=== PATIENT | male | born 1955 | race African-American/Black ===

== ENCOUNTER 2017-05-15 18:17 | Inpatient (IN) ==
[2017-05-15] MEDS ORDERED: SODIUM CHLORIDE 0.9% 1,000 ML IV STA ×2 (18:38→18:55)
--- NOTE | 2017-05-15 18:45 | Emergency Department Note ---
Arrival - Arrival Chief Complaint: Syncope ED Nursing Triage Note: pt has been sitting outside most of the day at a family eating and passed out while sitting in his wheelchair. acu check was 167 Mode of Arrival: Stretcher Time Seen by Provider: 05/15/17 18:31 - History of Present Illness HPI Narrative: This is a 62-year-old male of descent with a history of acute stroke for which he was admitted to [facility] where an MRI scan showed acute infarct in the high right vertex and left cerebellum. The findings suggestive of a possible thrombotic embolic event or watershed infarct. He was admitted to [facility] for further medical management and rehabitation but his hospital course was complicated by sudden onset of dehydration and low blood pressure and decreasing level of consciousness for which he was transferred to [facility] where he stayed for couple of days and transferred back to [facility] after stabilization and then was transferred to [facility] facility ([facility]) for further long-term therapy and care. His family member picked him up from the [facility] at approximately 4 PM and he was with her sitting in the lawn in his wheelchair for approximately 1-1/2 hours when he suddenly became unresponsive. He was unable to wake him and called 911 where she was instructed to pull him onto the ground and began CPR. She did chest compressions for approximately 10 minutes and was breathing into his mouth but she noticed that he was breathing during the entire time that she was doing the CPR. Within 20 minutes of his passing out the ambulance arrived and found that his blood sugar was normal. In the emergency department the patient was noted to be awake alert oriented to the president the [facility] in the month. The family member said that this was his normal baseline from a mental status point of view. Allergies/Adverse Reactions: Allergies Allergy/AdvReac Type Severity Reaction Status Date / Time morphine Allergy Unknown/Unable Verified 01/12/15 23:03 to obtain Home Medications: Home Medications Medication Instructions Recorded Confirmed Type Pravastatin [Pravachol] 20 mg PO BEDTIME #30 tablet 03/29/15 04/23/16 Rx Lisinopril/Hydrochlorothiazide 1 each PO DAILY 04/18/15 04/23/16 History [Lisinopril-Hctz 20-12.5 mg Tab] Aspirin EC Tab 325 mg PO DAILY 04/23/16 04/23/16 History Multivitamin [One Daily] 1 each PO DAILY 04/23/16 04/23/16 History Nicotine [Nicotine 21 mg/24 Hr 1 patch TRANSDERM DAILY 04/23/16 04/23/16 History Patch] Nitroglycerin [Nitroglycerin SL 0.4 mg SL Q5M PRN 04/23/16 04/23/16 History Tab] amLODIPine [Norvasc] 10 mg PO DAILY 04/24/16 04/24/16 History Enoxaparin [Lovenox] 40 mg SUBCUT Q24H syringe 05/06/16 Rx Folic Acid Tab 1 mg PO DAILY tablet 05/06/16 Rx Losartan [Cozaar] 25 mg PO DAILY tablet 05/06/16 Rx Thiamine Tab [Vitamin B1 Tab] 100 mg PO DAILY tablet 05/06/16 Rx Amoxicillin Cap/Tab 500 mg PO Q8HR #30 capsule 04/16/17 Rx Review of System - Review of System Constitutional: Absent: fever, night sweats, weakness Eyes: Absent: redness, vision change Head/Ears/Nose/Throat: Absent: epistaxis, nasal drainage Respiratory: Absent: respiratory distress, wheezing Cardiovascular: Present: orthopnea, syncope. Absent: chest pain, palpitations Gastrointestinal: Absent: diarrhea, constipation, hematemesis Genitourinary male: Absent: hematuria, discharge Musculoskeletal: Absent: joint swelling, lower back pain Skin: Absent: change in color, change in hair/nails Neurological: Absent: numbness, paresthesias, confusion Psychiatric: Absent: anxiety, depression Endocrine: Absent: heat intolerance, polydipsia, polyuria Hematological/Lymphatic: Absent: easy bruising, lymphadenopathy Allergic/Immunologic: Absent: urticaria, itchy eyes Medical,Surgical,& Family Hx - Medical History Cardio: History of: Hypertension, Cardiovascular Problems (states has heart problems, unsure of specifics, denies heart attack) No history of: Aneurysm, Cardiac Dysrhythmia, Cerebrovascular Disease, Congenital Heart Disease, CHF, CAD, [place], Pacemaker, PVD, Valvular Heart Disease Psychological: History of: Depression No history of: Anxiety Disorders, ADHD, Behavior Problems, Bipolar Disorder, Previous Suicide Attempt, Psychiatric/Substance Abuse Tx, Schizophrenia, Violent Behavior, Psychiatric Problems Neurology: History of: TIA (this admit patient unsure, very poor historian) No history of: Brain Aneurysm, Cerebral Hemorrhage, Cerebrovascular Accident , Cerebral Palsy, Dementia, Migraine, Multiple Sclerosis, Parkinson's Disease, Peripheral Neuropathy, Seizures, Vertigo, Neurologocal Cancer HEENT: History of: Dental Problems No history of: Ear Problem, Eye Problem, Glaucoma, Oral Cancer, HEENT Problems Endocrine: History of: Diabetes Mellitus (NIDDM), Dyslipidemia No history of: Adrenal Disease, Diabetes Mellitus (IDDM), Thyroid Disorder, Endocrine Cancer, Endocrine Problems Rheumatology: No history of;: Sjogrens, Systemic Lupus Erythematosus Respiratory: No history of: Asthma, Bronchitis, COPD, Intubation, Obstructive Sleep Apnea , Pulmonary Embolism, Pulmonary Hypertension, Pneumonia, Lung Cancer, Respiratory Problems Renal: No history of: Renal (Kidney) Cancer, Dialysis, Renal Failure, Renal Problems Genitourinary: History of: Problems (frequency) No history of: Bladder Problem, Kidney Stones, Prostate Problems, Recurring Urinary Tract Infections, Genitourinary Cancer Gastrointestinal: History of: GERD, Liver Problems No history of: Bowel Obstruction, Clostridium Difficile, Crohn's Disease, Diverticulitis/ Diverticulosis, Esophageal Varices, Gastrointestinal Bleed, Hemorrhoids, Hematochezia, Hepatitis, Pancreatitis, Polyps, Ulcerative Colitis, Gastrointestinal Cancer, GI Problems Musculoskeletal: No history of: Amputation Hematology: No history of: Blood Transfusion Reaction Other: History of: Skin Problems No history of: Anesthesia Reactions, Anaphylaxis, Cancer, HIV, Malignant Hyperthermia, MRSA, Vancomycin-Resistant Enterococci, Miscellaneous Medical Problems - Surgical History Cardiac Surgeries: Sugical HX of: Cardiac Catheterization Patient Denies: Femoral-Popliteal Bypass Graft, Cardiac Surgery, Carotid Endarterectomy, Internal Defibrillator, Vascular Access Devices Thoracic Surgeries: Patient denies;: Kidney (Renal Surgery), Lithotripsy, Nephrectomy, Organ Transplant, Lobectomy Neurologic Surgeries: Patient denies: Brain Aneurysm, Cerebral Hemorrhage, Neurologic Surgery HEENT Surgeries: Patient denies: Carotid Endarterectomy, Eye Surgery, Thyroid Surgery, Tonsilectomy & Adenoidectomy Abdominal Surgeries: Patient denies: Abdominal Surgery, Appendectomy, Cholecystectomy, Colonoscopy , Gastric Bypass Surgery, EGD, Hernia Repair, Splenectomy Reproductive Surgeries: Patient denies;: Cystoscopy, Genitourinary Surgery, Prostate Surgery - Family History Family History: Reports;: Family Diabetes, Family Heart Disease, Family Hypertension, Family Stroke Denies;: Family Anesthesia Reaction, Family Cancer, Family Psychiatric Problems - Social History Smoking Status: Current every day smoker Frequency of Alcohol Use: None Type of Drug Use: None Exam Vital Signs: Vital Signs Temperature 97.3 F L 05/15/17 18:22 Pulse Rate 87 05/15/17 18:22 Respiratory Rate 18 05/15/17 18:29 Blood Pressure 89/66 05/15/17 18:22 O2 Sat by Pulse Oximetry 95 05/15/17 18:22 - General Exam limited due to: ALOC - Head Head exam: Present: atraumatic, normocephalic - Eye Eye exam: Present: normal appearance, PERRL, EOMI - ENT ENT exam: Present: normal exam, normal oropharynx - Neck Neck exam: Present: normal inspection, full ROM - Chest Chest inspection: Present: normal inspection - Respiratory Respiratory exam: Present: normal lung sounds bilaterally - Cardiovascular Cardiovascular exam: Present: regular rate, normal rhythm - Abdominal Exam Abdominal exam: Present: soft, distention - Extremities Exam Extremities exam: Present: normal inspection, full ROM - Back Exam Back exam: Present: normal inspection, full ROM - Neurological Exam Neurological exam: Present: alert, oriented X3, CN II-XII intact, other ( 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 The remainder of the neurologic examination is normal.) - Skin Skin exam: Present: warm, dry Course Course Narrative: The patient had an unresponsive episode and CPR was done but there is no respiratory rest. In the emergency department the patient had a low blood pressure. This is the third episode the patient has had in the past 2 months of a similar presentation. However since the patient actually had CPR during this episode it seems prudent that the patient should be admitted to the hospital for observation and possible further evaluation. The case was discussed with the hospitalist who agreed to admit the patient. Results - Labs CBC & BMP: 05/15/17 18:35 05/15/17 18:35 Disposition Clinical Impression: Hypotension, Syncope, Cardiac arrest Disposition: Still a Patient Additional Instructions: The patient had an unresponsive episode and CPR was done but there is no respiratory rest. In the emergency department the patient had a low blood pressure. This is the third episode the patient has had in the past 2 months of a similar presentation. However since the patient actually had CPR during this episode it seems prudent that the patient should be admitted to the hospital for observation and possible further evaluation. The case was discussed with the hospitalist who agreed to admit the patient.
--- NOTE | 2017-05-15 18:47 | EKG Report ---
Stationary ECG Study [facility] ER Test Date: 05/15/2017 6:23:31 PM Pat Name: JEFFERSON SIMON Department: Room: Gender: M Surgery Assistant: : [id number] Requested by: Twin Fernandez Order Number: [id number] Reading MD: NENA RASHID Intervals [place] Rate: 83 P: 112 NM: 147 QRS: 28 QRSD: 79 T: 1 QT: 359 QTc: 399 Interpretive Statements SINUS RHYTHM Electronically Signed On 05-15-17 20:00:02 CDT by NENA RASHID [email or web address]
[2017-05-15 18:48] LABS: Basophils % 0.3 % (0.0-0.8); Eosinophils # 0.2 10*3/uL (0.0-0.87); Eosinophils % 3.1 % (0.00-10.9); Hemoglobin 14.7 GM/DL (14.0-18.0); Immature Granulocytes % 0.3 %; Immature Granulocytes Absolute 0.02 #; Lymphocytes # 3.9 10*3/uL (1.4-4.0); Mean Corpuscular Hemoglobin 32 PG (27-34); Mean Corpuscular Volume 91.1 FL (87-102); Monocytes # 0.6 10*3/uL (0.11-0.8); Monocytes % 8.9 % (1.7-12.7); Neutrophils % 29.4 % (38.7-73.9); Platelet Count 231 T/CUMM (130-400); Red Blood Count 4.61 MC/CUMM (3.8-5.5); Red Cell Distribution Width 12.8 % (9.3-17.3); White Blood Count 6.7 T/CUMM (4-12)
[2017-05-15 19:17] LABS: Eosinophils 3 % (0-10); Lymphocytes 62 % (20-55); Segmented Neutrophils 25 % (50-85); Total Cells Counted 100
[2017-05-15 19:18] LABS: Platelet Estimate Adequate
[2017-05-15 19:20] LABS: Alanine Aminotransferase 54 U/L (16-61); Albumin 3.5 G/DL (3.4-5.0); Alkaline Phosphatase 205 U/L (45-117); Aspartate Amino Transferase 47 U/L (0-37); Blood Urea Nitrogen 15 MG/DL (7-18); Glucose 153 MG/DL (74-106); Osmolality,Calculated 280.5 MOS/KG (273-304); Potassium 3.4 MMOL/L (3.5-5.1); Sodium 139 MMOL/L (136-145); Troponin I Only < 0.015 NG/ML (0.00-0.045)
--- NOTE | 2017-05-15 19:24 | XRay Report ---
History: CPR arrest Date: 05/15/2017 Study: Chest x-ray single view portable Comparison exam: March 28, 2015 The cardiomediastinal silhouette is unchanged. The pulmonary vasculature is not engorged. The lungs are generally clear for shallow breath. There is no gross pleural effusion. There is moderate thoracic spondylosis and mild osteopenia. Impression: No acute cardiopulmonary process compared to the previous study PROCEDURE INTERPRETED AT [facility] DEPARTMENT OF RADIOLOGY Final Report Signed by: Dr. Mariaa Judd
--- NOTE | 2017-05-15 20:32 | Hospitalist History & Physical ---
Assessment and Plan (1) DVT prophylaxis Status: Acute Current Visit: No (2) HTN (hypertension) Status: Acute Current Visit: No (3) History of cocaine abuse Status: Acute Current Visit: No (4) Syncope and collapse Status: Acute Current Visit: No (5) TIA (transient ischemic attack) Status: Acute Assessment and plan: Plan for this patient 1. Admit patient to monitored bed 2. Check a CT scan of his head 3. Continue with IV fluids 4. Follow-up on labs 5. Home blood pressure medications 6. Neurology consult 7. These episodes happen before unsure of the cause. He runs episodes of hypotension which that previously occurred while he was in rehab. This also occurred when he was at the [facility] before. This is the third time this happened. Need to be evaluated to see if his blood pressure is running too low. Will hold his current blood pressure medications. Evaluate his carotids. And defer to Dr. Lemus to see if he would on additional imaging. Current Visit: No History of Present Illness Chief complaint: Syncope History of present illness: Mr. Vasquez is a 62 year old male with past medical history significant for stroke who was hospitalized at [facility] and transferred to a nursing care facility almost 1 year ago who presents to our ER tonight. Patient resides at the [facility] now [employer]. He is at the [facility] because of his inability to care for himself and he cannot walk secondary to stroke. Patient was taken home for a visit by sister. He was sitting there in a wheelchair and then he slumped over. She said his eyes rolled back in his head. She said she started [id number] resuscitation on him. She said he was breathing on his own at this time. He would not respond. At some point he slid down to the ground on his wheelchair. She started chest compressions. She did not check for a pulse at that time. When EMS arrived there patient threw up. He was brought to our hospital for further evaluation. Patient was found to be hypotensive in the emergency room received 2 L bolus and now is back in his normal state. I was consulted to admit him to the emergency room. Home Medications Medication Instructions Recorded Confirmed Type Pravastatin [Pravachol] 20 mg PO BEDTIME #30 tablet 03/29/15 04/23/16 Rx Lisinopril/Hydrochlorothiazide 1 each PO DAILY 04/18/15 04/23/16 History [Lisinopril-Hctz 20-12.5 mg Tab] Aspirin EC Tab 325 mg PO DAILY 04/23/16 04/23/16 History Multivitamin [One Daily] 1 each PO DAILY 04/23/16 04/23/16 History Nicotine [Nicotine 21 mg/24 Hr 1 patch TRANSDERM DAILY 04/23/16 04/23/16 History Patch] Nitroglycerin [Nitroglycerin SL 0.4 mg SL Q5M PRN 04/23/16 04/23/16 History Tab] amLODIPine [Norvasc] 10 mg PO DAILY 04/24/16 04/24/16 History Enoxaparin [Lovenox] 40 mg SUBCUT Q24H syringe 05/06/16 Rx Folic Acid Tab 1 mg PO DAILY tablet 05/06/16 Rx Losartan [Cozaar] 25 mg PO DAILY tablet 05/06/16 Rx Thiamine Tab [Vitamin B1 Tab] 100 mg PO DAILY tablet 05/06/16 Rx Amoxicillin Cap/Tab 500 mg PO Q8HR #30 capsule 04/16/17 Rx Allergies Allergy/AdvReac Type Severity Reaction Status Date / Time morphine Allergy Unknown/Unable Verified 01/12/15 23:03 to obtain Medical,Surgical,& Family Hx - Medical History Cardio: History of: Hypertension, Cardiovascular Problems (states has heart problems, unsure of specifics, denies heart attack) No history of: Aneurysm, Cardiac Dysrhythmia, Cerebrovascular Disease, Congenital Heart Disease, CHF, CAD, [place], Pacemaker, PVD, Valvular Heart Disease Psychological: History of: Depression No history of: Anxiety Disorders, ADHD, Behavior Problems, Bipolar Disorder, Previous Suicide Attempt, Psychiatric/Substance Abuse Tx, Schizophrenia, Violent Behavior, Psychiatric Problems Neurology: History of: TIA (this admit patient unsure, very poor historian) No history of: Brain Aneurysm, Cerebral Hemorrhage, Cerebrovascular Accident , Cerebral Palsy, Dementia, Migraine, Multiple Sclerosis, Parkinson's Disease, Peripheral Neuropathy, Seizures, Vertigo, Neurologocal Cancer HEENT: History of: Dental Problems No history of: Ear Problem, Eye Problem, Glaucoma, Oral Cancer, HEENT Problems Endocrine: History of: Diabetes Mellitus (NIDDM), Dyslipidemia No history of: Adrenal Disease, Diabetes Mellitus (IDDM), Thyroid Disorder, Endocrine Cancer, Endocrine Problems Rheumatology: No history of;: Sjogrens, Systemic Lupus Erythematosus Respiratory: No history of: Asthma, Bronchitis, COPD, Intubation, Obstructive Sleep Apnea , Pulmonary Embolism, Pulmonary Hypertension, Pneumonia, Lung Cancer, Respiratory Problems Renal: No history of: Renal (Kidney) Cancer, Dialysis, Renal Failure, Renal Problems Genitourinary: History of: Problems (frequency) No history of: Bladder Problem, Kidney Stones, Prostate Problems, Recurring Urinary Tract Infections, Genitourinary Cancer Gastrointestinal: History of: GERD, Liver Problems No history of: Bowel Obstruction, Clostridium Difficile, Crohn's Disease, Diverticulitis/ Diverticulosis, Esophageal Varices, Gastrointestinal Bleed, Hemorrhoids, Hematochezia, Hepatitis, Pancreatitis, Polyps, Ulcerative Colitis, Gastrointestinal Cancer, GI Problems Musculoskeletal: No history of: Amputation Hematology: No history of: Blood Transfusion Reaction Other: History of: Skin Problems No history of: Anesthesia Reactions, Anaphylaxis, Cancer, HIV, Malignant Hyperthermia, MRSA, Vancomycin-Resistant Enterococci, Miscellaneous Medical Problems - Surgical History Cardiac Surgeries: Sugical HX of: Cardiac Catheterization Patient Denies: Femoral-Popliteal Bypass Graft, Cardiac Surgery, Carotid Endarterectomy, Internal Defibrillator, Vascular Access Devices Thoracic Surgeries: Patient denies;: Kidney (Renal Surgery), Lithotripsy, Nephrectomy, Organ Transplant, Lobectomy Neurologic Surgeries: Patient denies: Brain Aneurysm, Cerebral Hemorrhage, Neurologic Surgery HEENT Surgeries: Patient denies: Carotid Endarterectomy, Eye Surgery, Thyroid Surgery, Tonsilectomy & Adenoidectomy Abdominal Surgeries: Patient denies: Abdominal Surgery, Appendectomy, Cholecystectomy, Colonoscopy , Gastric Bypass Surgery, EGD, Hernia Repair, Splenectomy Reproductive Surgeries: Patient denies;: Cystoscopy, Genitourinary Surgery, Prostate Surgery - Family History Family History: Reports;: Family Diabetes, Family Heart Disease, Family Hypertension, Family Stroke Denies;: Family Anesthesia Reaction, Family Cancer, Family Psychiatric Problems - Social History Smoking Status: Current every day smoker Frequency of Alcohol Use: None Type of Drug Use: None 12 point system: reviewed and no additional remarkable complaints except as stated Exam - Constitutional Vitals: Period Temp Pulse Resp BP Sys/Neri Pulse Ox Last 24 Hr 97.3 F-97.3 F 87-87 18-18 89-89/66-66 95 General appearance: normal weight, no acute distress - Head Head exam: Present: normal inspection - Eye Eye exam: Present: EOMI Pupils: Present: KELLY - ENT ENT exam: Present: normal exam - Neck Neck exam: Present: normal inspection - Respiratory Respiratory exam: Present: clear to auscultation bilaterally - Cardiovascular Cardiovascular exam: Present: regular rate and rhythm - GI/Abdominal GI/Abdominal exam: Present: normal bowel sounds - Extremities Exam Extremities exam: Present: normal inspection - Neurological Exam Neurological exam: Present: alert, other (Patient has a residual flaccid paralysis on his left side. He has more movement in his left upper extremity. But it is decreased.) - Psychiatric Psychiatric exam: Present: normal affect - Skin Skin exam: Present: normal color Results - Labs CBC & BMP: 05/15/17 18:35 05/15/17 18:35
--- NOTE | 2017-05-15 20:49 | CT Report ---
History: Syncope Date: 05/15/2017 Study: CT head without contrast Comparison exam: April 16, [address] sections were obtained through the brain without contrast. The ventricles are midline in position without evidence of hydrocephalus. There is no mass or area of parenchymal hemorrhage. There is no gross CT evidence of acute cortical stroke. There is mild cerebral atrophy. There is a wedge-shaped area of chronic ischemia in the paramedian aspect of the right frontal lobe as before. Areas of chronic lacunar infarction are noted in the anterior right internal capsule, left caudate head, right thalamus, as before. There is a small amount of ill-defined low density in the periventricular white matter without mass effect compatible with changes of small vessel disease. There is no extra-axial hematoma. There is some mild mucosal thickening in the right sphenoid sinus, similar to the previous study. There is no obvious skull fracture. Impression: No acute intracranial process. Chronic ischemic changes as on the previous study. Right sphenoid sinusitis which may be chronic This CT exam was performed using one or more the following dose reduction techniques: Automated exposure control, adjustment of the MA and/or KV according to patient size, or use of iterative reconstruction technique. PROCEDURE INTERPRETED AT [facility] DEPARTMENT OF RADIOLOGY Final Report Signed by: Dr. Mariaa Judd
[2017-05-15 21:08] LABS: Apearance,Urine CLEAR (Clear); Bilirubin,Urine Negative (Negative); Blood, Urine Negative (Negative); Glucose,Urine (UA) Negative (Negative); Hyaline Casts,Urine 15 /LPF (0-3); Ketones,Urine Negative (Negative); Mucus,Urine Occasional /LPF (Occasional); Nitrite,Urine Negative (Negative); Protein,Urine Negative; RBC,Urine 11 /HPF (0-4); Squamous Epithelial Cell,Urine Occasional /HPF (0-10); Urine Color Yellow (Yellow); Urine Specific Gravity 1.013 (1.001-1.035); WBC,Urine <1 /HPF (0-6)
[2017-05-15 21:20] LABS: Risk Ratio 3.58; VLDL CHOLESTEROL 29.6 MG/DL
[2017-05-15] MEDS: ENOXAPARIN 40 MG/0.4 ML SYRINGE SUBCUT SCH (22:14)
[2017-05-15] MEDS: SODIUM CHLOR 0.45% KCL 20 MEQ 20 MEQ/1,000 ML BAG IV SCH (22:15)
[2017-05-16 01:44] LABS: Barbiturates Screen,Urine Negative (Negative); Benzodiazepines Screen,Urine Negative (Negative); Cannabinoid Screen,Urine Positive (Negative); Opiate Screen,Urine Negative (Negative); Phencyclidine Screen,Urine Negative (Negative)
[2017-05-16 03:38] LABS: Basophils % 0.2 % (0.0-0.8); Eosinophils # 0.1 10*3/uL (0.0-0.87); Eosinophils % 1.1 % (0.00-10.9); Hemoglobin 13.6 GM/DL (14.0-18.0); Immature Granulocytes % 0.1 %; Immature Granulocytes Absolute 0.01 #; Lymphocytes # 3.4 10*3/uL (1.4-4.0); Lymphocytes % 36.4 % (21.2-54.2); Mean Corpuscular HGB Conc 34.9 GM/DL (32-36); Mean Corpuscular Hemoglobin 32 PG (27-34); Mean Corpuscular Volume 90.3 FL (87-102); Mean Platelet Volume 10.1 FL (9.6-12.0); Monocytes # 0.7 10*3/uL (0.11-0.8); Monocytes % 7.6 % (1.7-12.7); Neutrophils # 5.1 10*3/uL (1.4-7.4); Neutrophils % 54.6 % (38.7-73.9); Platelet Count 188 T/CUMM (130-400); Red Blood Count 4.32 MC/CUMM (3.8-5.5); Red Cell Distribution Width 12.5 % (9.3-17.3); White Blood Count 9.4 T/CUMM (4-12)
[2017-05-16 04:58] LABS: Calcium 8.7 MG/DL (8.5-10.1); Osmolality,Calculated 284.8 MOS/KG (273-304); Potassium 4.1 MMOL/L (3.5-5.1)
--- NOTE | 2017-05-16 08:06 | Ultrasound Report ---
Carotid artery ultrasound Indication: Syncope Comparison: None available Color Doppler flow and spectral analysis was performed. Findings: Small amount of atherosclerotic plaque is present in both proximal internal carotid arteries. Right peak systolic velocity: Right CCA: 104 centimeters per second Right proximal Internal Carotid Artery is 66.1 cm/s. Ratio of flow is 0.6 Right distal Internal Carotid is 58.7 cm/s . Left peak systolic velocity: Left CCA: 79 centimeters per second Left proximal Internal carotid Artery is 60.7 cm/s . Ratio of flow is 0.51 Left distal Internal carotid Artery is 38cm/s Bilateral antegrade vertebral flow is seen. Impression: No evidence of hemodynamically significant stenosis is seen, 0-49% estimated stenosis. Consensus conference on the carotid ultrasound criteria used. Ultrasound images were captured and stored. PROCEDURE INTERPRETED AT [facility] DEPARTMENT OF RADIOLOGY Final Report Signed by: Dr. Santana Quezada
[2017-05-16] MEDS ORDERED: ASPIRIN 325 MG TABLET PO SCH (09:00)
[2017-05-16] MEDS: FOLIC ACID 1 MG TABLET PO SCH (09:23)
[2017-05-16] MEDS: MULTIVITAMIN (CENTRUM) TABLET PO SCH (09:23)
[2017-05-16] MEDS: THIAMINE 100 MG TABLET PO SCH (09:23)
--- NOTE | 2017-05-16 12:12 | Hospitalist Progress Note ---
Assessment and Plan (1) TIA (transient ischemic attack) Status: Acute Assessment and plan: Neurology consult. Carotids without stenosis. Current Visit: No (2) HTN (hypertension) Status: Chronic Assessment and plan: will hold some of his BP meds to avoid hypotension. Current Visit: Yes Qualifiers: Hypertension type: essential hypertension Qualified Code(s): I10 - Essential (primary) hypertension (3) Acute CVA (cerebrovascular accident) Status: Chronic Current Visit: No (4) Syncope Status: Acute Assessment and plan: no visible seizure activity according to the ED records. work up in progress. Current Visit: Yes Qualifiers: Encounter type: initial encounter Hospitalist: Subjective Interval history: Patient seen and examined. No acute events overnight. Case discussed with nursing staff. Labs reviewed. Patient is admitted after syncopal episode at home. He denies any new complaints. He reports he feels back to baseline. He thinks he had a "slight seizure." There is a small area of ecchymosis on the left side of the tongue consistent with a possible seizure. A prolactin level was not done. He is not on seizure medications. Neuro consult is pending. Exam - Constitutional Vitals: Period Temp Pulse Resp BP Sys/Neri Pulse Ox Last 24 Hr 96.5 F-97.7 F 70-88 18-20 89-125/57-75 93-97 Exam: Constitutional System: No distress. No tremulousness. Head: Normocephalic, atraumatic. Ears, Nose and Throat System: No pain or tenderness. No epistaxis or discharge Eyes System: Pupils equal, round, and reactive. Extraocular muscles intact. Neck: Supple, without adenopathy, No jugular venous distention. Respiratory System: Chest clear to auscultation. Cardiovascular System: Heart with regular rate and rhythm. No murmur. GI System: Abdomen soft, nontender. Normo active bowel sounds present. Musculoskeletal System: limbs with no pedal edema. Full distal pulses. Normal capillary refill. Neurological System: No discernable sensory deficit. No aphasia. Right-sided weakness noted Psychiatric System: Conversation is rational Results - Labs CBC & BMP: 05/16/17 03:31 05/16/17 03:31 Lab Results: I have reviewed the past 24 hour labs
[2017-05-16] MEDS: SODIUM CHLOR 0.45% KCL 20 MEQ 20 MEQ/1,000 ML BAG IV SCH ×2 (12:21→20:36)
--- NOTE | 2017-05-16 14:31 | Neurology Consult Note ---
History of Present Illness History of present illness: Patient is unable to provide me any history. History basically obtained from the chart. Mr. Vasquez is a 62 year old -[place] gentleman with past medical history significant for stroke affected left body who has [facility] a [facility] a [facility]. [facility] the [facility] because of his inability to care for himself and he cannot walk secondary to stroke. Patient was taken home for a visit by sister. He was sitting there in a wheelchair and then he slumped over. Family said his eyes rolled back in his head. They started mouth-to- mouth resuscitation on him. At some point he slid down to the ground on his wheelchair. Family started chest compressions. When EMS arrived there patient threw up. He was brought to our hospital for further evaluation. Patient was found to be hypotensive in the emergency room received 2 L bolus and now is back in his normal state. CT scan reveals no acute abnormalities but did show chronic changes. Urine toxicology is positive for cannabinoids. Home Medications Medication Instructions Recorded Confirmed Type Pravastatin [Pravachol] 20 mg PO BEDTIME #30 tablet 03/29/15 04/23/16 Rx Lisinopril/Hydrochlorothiazide 1 each PO DAILY 04/18/15 04/23/16 History [Lisinopril-Hctz 20-12.5 mg Tab] Aspirin EC Tab 325 mg PO DAILY 04/23/16 04/23/16 History Multivitamin [One Daily] 1 each PO DAILY 04/23/16 04/23/16 History Nicotine [Nicotine 21 mg/24 Hr 1 patch TRANSDERM DAILY 04/23/16 04/23/16 History Patch] Nitroglycerin [Nitroglycerin SL 0.4 mg SL Q5M PRN 04/23/16 04/23/16 History Tab] amLODIPine [Norvasc] 10 mg PO DAILY 04/24/16 04/24/16 History Enoxaparin [Lovenox] 40 mg SUBCUT Q24H syringe 05/06/16 Rx Folic Acid Tab 1 mg PO DAILY tablet 05/06/16 Rx Losartan [Cozaar] 25 mg PO DAILY tablet 05/06/16 Rx Thiamine Tab [Vitamin B1 Tab] 100 mg PO DAILY tablet 05/06/16 Rx Amoxicillin Cap/Tab 500 mg PO Q8HR #30 capsule 04/16/17 Rx Allergies Allergy/AdvReac Type Severity Reaction Status Date / Time morphine Allergy Unknown/Unable Verified 01/12/15 23:03 to obtain 12 point system: reviewed and no additional remarkable complaints except as stated Medical,Surgical,& Family Hx - Medical History Cardio: History of: Hypertension, Cardiovascular Problems (states has heart problems, unsure of specifics, denies heart attack) No history of: Aneurysm, Cardiac Dysrhythmia, Cerebrovascular Disease, Congenital Heart Disease, CHF, CAD, RI, Pacemaker, PVD, Valvular Heart Disease Psychological: History of: Depression No history of: Anxiety Disorders, ADHD, Behavior Problems, Bipolar Disorder, Previous Suicide Attempt, Psychiatric/Substance Abuse Tx, Schizophrenia, Violent Behavior, Psychiatric Problems Neurology: History of: TIA (this admit patient unsure, very poor historian) No history of: Brain Aneurysm, Cerebral Hemorrhage, Cerebrovascular Accident , Cerebral Palsy, Dementia, Migraine, Multiple Sclerosis, Parkinson's Disease, Peripheral Neuropathy, Seizures, Vertigo, Neurologocal Cancer HEENT: History of: Dental Problems No history of: Ear Problem, Eye Problem, Glaucoma, Oral Cancer, HEENT Problems Endocrine: History of: Diabetes Mellitus (NIDDM), Dyslipidemia No history of: Adrenal Disease, Diabetes Mellitus (IDDM), Thyroid Disorder, Endocrine Cancer, Endocrine Problems Rheumatology: No history of;: Sjogrens, Systemic Lupus Erythematosus Respiratory: No history of: Asthma, Bronchitis, COPD, Intubation, Obstructive Sleep Apnea , Pulmonary Embolism, Pulmonary Hypertension, Pneumonia, Lung Cancer, Respiratory Problems Renal: No history of: Renal (Kidney) Cancer, Dialysis, Renal Failure, Renal Problems Genitourinary: History of: Problems (frequency) No history of: Bladder Problem, Kidney Stones, Prostate Problems, Recurring Urinary Tract Infections, Genitourinary Cancer Gastrointestinal: History of: GERD, Liver Problems No history of: Bowel Obstruction, Clostridium Difficile, Crohn's Disease, Diverticulitis/ Diverticulosis, Esophageal Varices, Gastrointestinal Bleed, Hemorrhoids, Hematochezia, Hepatitis, Pancreatitis, Polyps, Ulcerative Colitis, Gastrointestinal Cancer, GI Problems Musculoskeletal: No history of: Amputation Hematology: No history of: Blood Transfusion Reaction Other: History of: Skin Problems No history of: Anesthesia Reactions, Anaphylaxis, Cancer, HIV, Malignant Hyperthermia, MRSA, Vancomycin-Resistant Enterococci, Miscellaneous Medical Problems - Surgical History Cardiac Surgeries: Sugical HX of: Cardiac Catheterization Patient Denies: Femoral-Popliteal Bypass Graft, Cardiac Surgery, Carotid Endarterectomy, Internal Defibrillator, Vascular Access Devices Thoracic Surgeries: Patient denies;: Kidney (Renal Surgery), Lithotripsy, Nephrectomy, Organ Transplant, Lobectomy Neurologic Surgeries: Patient denies: Brain Aneurysm, Cerebral Hemorrhage, Neurologic Surgery HEENT Surgeries: Patient denies: Carotid Endarterectomy, Eye Surgery, Thyroid Surgery, Tonsilectomy & Adenoidectomy Abdominal Surgeries: Patient denies: Abdominal Surgery, Appendectomy, Cholecystectomy, Colonoscopy , Gastric Bypass Surgery, EGD, Hernia Repair, Splenectomy Reproductive Surgeries: Patient denies;: Cystoscopy, Genitourinary Surgery, Prostate Surgery - Family History Family History: Reports;: Family Diabetes, Family Heart Disease, Family Hypertension, Family Stroke Denies;: Family Anesthesia Reaction, Family Cancer, Family Psychiatric Problems - Social History Smoking Status: Current every day smoker Frequency of Alcohol Use: None Type of Drug Use: None Exam - Constitutional Vitals: Period Temp Pulse Resp BP Sys/Neri Pulse Ox Last 24 Hr 96.5 F-97.7 F 70-88 18-20 89-164/57-95 93-98 Exam: GENERAL: Patient is in no acute distress. NECK: Neck is supple. There is no JVD. No carotid bruits present. No thyroid masses. CVS: First and second heart sounds are normal. There is no S3 present. Regular rate and rhythm. RESPIRATORY: Lungs are clear to auscultation without any rales or rhonchi. ABDOMEN: Soft and non-tender. Bowel sounds are present. There is no hepatosplenomegaly. EXT: There is no palpable edema. Peripheral pulses are present. Skin: No rashes Central Nervous system: General: Alert, awake and Oriented x 3 Speech: Fluent Comprehension: Intact and normal Facial expressions: Normal Cranial Nerves: CN1/Olfactory: Normal CN II/ Optic: Normal, Visual Cade unreliable CN III, and : KELLY & EOMI CN V: Normal & intact CN VII: face is symmetric CNVIII: Normal CN XI/X/XI/XII: Intact and Normal Motor: Bilateral cogwheel rigidity mild. Strength in the right 3-4/5 Strength in the left 2/5 Sensory: Unreliable Reflexes: 1+ and symmetrical Cerebellar function: Cannot be assessed Toes: Equivocal Gait: Cannot be assessed Results - Labs CBC & BMP: 05/16/17 03:05/16/17 03:31 Assessment and Plan (1) Seizure Status: Acute Assessment and plan: History is suggestive of possible seizures. Risk factors included drug abuse as well as history of a stroke We will start Dilantin 100 mg p.o. 3 times daily EEG Current Visit: Yes (2) History of CVA (cerebrovascular accident) Status: Acute Assessment and plan: Continue aspirin a day Discuss all the risk factors of the stroke Current Visit: Yes (3) Current recreational drug use Status: Acute Assessment and plan: Advised and encouraged him to stop the use of other recreational drug use Current Visit: Yes
[2017-05-16] MEDS: ENOXAPARIN 40 MG/0.4 ML SYRINGE SUBCUT SCH (20:36)
[2017-05-16] MEDS ORDERED: PRAVASTATIN 20 MG TABLET PO SCH (21:00)
--- NOTE | 2017-05-16 21:32 | ECHO Report ---
Nayan Vasquez 05/16/2017 Exam Date: 10:07 Referring Physician: Asia Ziegler Technologist: JOE Age: 62 Ht (in): 69 Wt (lb): 180 MExam Location: [facility] Gender: Echo [id number]: weakness, syncope, hx. HTNIndications: BP: 125 / 75 HR: 81 SinusRhythm: Technical Quality: IMPRESSIONS Normal left ventricular size, without hypertrophy, with normal systolic function, abnormal septal motion.. Estimated left ventricular ejection fraction 55%. Grade 1 diastolic dysfunction. The right ventricle is mildly dilated, with normal systolic function. Mild biatrial enlargement. MEASUREMENTS (Male / Female) Normal Values 2D ECHO LV Diastolic Diameter PLAX 2.8 cm 4.2 - 5.9 / 3.9 - 5.3 cm LV Systolic Diameter PLAX 1.5 cm LV Fractional Shortening PLAX 48.5 % IVS Diastolic Thickness 1.0 cm 0.6 - 1.0 / 0.6 - 0.9 cm LVPW Diastolic Thickness 0.9 cm 0.6 - 1.0 / 0.6 - 0.9 cm Aortic Root Diameter 2.3 cm LA Systolic Diameter LX 2.6 cm 3.0 - 4.0 / 2.7 - 3.8 cm FINDINGS Left Ventricle Normal left ventricular size, without hypertrophy, with normal systolic function, abnormal septal motion.. Estimated left ventricular ejection fraction 55%. Grade 1 diastolic dysfunction. Right Ventricle The right ventricle is mildly dilated, with normal systolic function. Right Atrium The right atrium is mildly dilated Left Atrium The left atrium is mildly enlarged. Mitral Valve Morphologically normal mitral valve, without stenosis or insufficiency. Aortic Valve The aortic valve is trileaflet, delicate and has normal motion. Tricuspid Valve Morphologically normal tricuspid valve. Trace regurgitation, insufficient signal signal to estimate pulmonary artery systolic pressure. Pulmonic Valve Morphologically normal pulmonic valve. No stenosis or insufficiency Pericardium No pericardial effusion. Aorta Normal size aortic root and proximal ascending aorta. Dov Stafford (Electronically Signed) 16 May 2017 Final Date: 21:19
[2017-05-17] MEDS ORDERED: FOLIC ACID 1 MG TABLET PO SCH (09:00)
[2017-05-17] MEDS ORDERED: LOSARTAN 25 MG TABLET PO SCH (09:00)
[2017-05-17] MEDS ORDERED: MULTIVITAMIN (CENTRUM) TABLET PO SCH (09:00)
[2017-05-17] MEDS ORDERED: ASPIRIN EC 325 MG TABLET PO SCH (09:00)
[2017-05-17] MEDS ORDERED: THIAMINE 100 MG TABLET PO SCH (09:00)
[2017-05-17] MEDS: THIAMINE 100 MG TABLET PO SCH (09:40)
[2017-05-17] MEDS: MULTIVITAMIN (CENTRUM) TABLET PO SCH (09:40)
[2017-05-17] MEDS: SODIUM CHLOR 0.45% KCL 20 MEQ 20 MEQ/1,000 ML BAG IV SCH (09:41)
[2017-05-17] MEDS: FOLIC ACID 1 MG TABLET PO SCH (09:41)
[2017-05-17 11:08] VITALS: BP 130/82
--- NOTE | 2017-05-17 11:18 | Discharge Summary ---
Hospital Course - Hospital Course Hospital Course: Mr. Vasquez was admitted to the hospital after syncopal episode and possible seizure versus stroke. He has no new neurological deficits. His mental status has returned to normal. He was evaluated by neurology and thought to have experienced a seizure. He is at risk for seizures given his history of old stroke. He has been started on Dilantin 100 mg 3 times daily. He had no other seizure events during the course of the hospitalization. Cultures have been negative. The patient did test positive for marijuana on admission. He has been counseled regarding illicit drug use. He is being discharged back to the care home today with a new prescription for Dilantin 100 mg 3 times daily. He should follow-up with his primary care physician at the care home and neurology as needed. His home medications were reviewed and reconciled. He is a full code. He was also instructed to take aspirin daily to prevent further strokes. - Time spent with patient Time with patient DS: Greater than 30 minutes (Total discharge time for this patient, including [id number] time, clinical documentation, medication reconciliation, and discharge planning was 41 minutes.) Diagnosis - Discharge Diagnosis (1) TIA (transient ischemic attack) Status: Resolved (2) HTN (hypertension) Status: Chronic (3) Acute CVA (cerebrovascular accident) Status: Chronic (4) Syncope Status: Resolved (5) Hypotension Status: Resolved (6) Seizure Status: Acute (7) History of CVA (cerebrovascular accident) Status: Chronic Discharge Plan - Discharge Data Disposition: Disch/Xfer to Snf Condition at Discharge: Stable Discharge Diet: advance to your usual diet Activity: as per physical therapy Contact your physician if you experience:: fever over 101, Difficulty voiding, Shortness of breath - Discharge Medications New Phenytoin ER Cap [Dilantin Cap] 100 mg PO TID #90 capsule Continue Pravastatin [Pravachol] 20 mg PO BEDTIME #30 tablet Aspirin EC Tab 325 mg PO DAILY Multivitamin [One Daily] 1 each PO DAILY Nicotine [Nicotine 21 mg/24 Hr Patch] 1 patch TRANSDERM DAILY Nitroglycerin [Nitroglycerin SL Tab] 0.4 mg SL Q5M PRN PRN Reason: Angina Folic Acid Tab 1 mg PO DAILY tablet Losartan [Cozaar] 25 mg PO DAILY tablet Thiamine Tab [Vitamin B1 Tab] 100 mg PO DAILY tablet Discontinued Lisinopril/Hydrochlorothiazide [Lisinopril-Hctz 20-12.5 mg Tab] 1 each PO DAILY Amoxicillin Cap/Tab 500 mg PO Q8HR #30 capsule amLODIPine [Norvasc] 10 mg PO DAILY Enoxaparin [Lovenox] 40 mg SUBCUT Q24H syringe - Follow Up or Referral - Forms/Instructions Additional Discharge Instructions: Follow-up with primary care physician in 1 week Exam - Constitutional Vitals: Period Temp Pulse Resp BP Sys/Neri Pulse Ox Last 24 Hr 97.3 F-99.0 F 56-79 16-22 103-164/55-95 95-99 DS: Provider Date of admission: 05/16/17 12:52 Primary care physician: Snow Sr Attending physician on admission: Cachorro Holland MD Consults: 05/15/17 20:38 Consult to Case Mgmt/Social Srvs [CONS] Routine Reason for Case Mgmt/Social Srvs: Discharge Planning Consult to Occupational Therapy [CONS] Routine Reason for Occupational Therapy: Evaluate and Treat Consult Comment: Stroke Consult to Physical Therapy [CONS] Routine Reason for Physical Therapy: Evaluate and Treat Consult Comment: stroke 05/15/17 20:41 Consult to Physician [CONS] Routine Comment: Consulting Provider: Alverto Lemus Consulting Provider Notified: Yes When should Consulting Provider be notified: Now Consult to Specialist Group: Neurology When should Consulting Provider be notified: In am Person Notified: MOUSTAPHA Date Notified: 05/16/17 Time Notified: 08:52 05/15/17 22:59 Consult to Dietitian [CONS] Routine Reason for Dietitian: Dietary Consult Discharging clinician: Yulisa Turcios MD Expected date of discharge: 05/17/17
--- NOTE | 2017-05-18 10:50 | Physician Query Form ---
CLICK EDIT DOCUMENT TO SELECT QUERY ANSWER --> OK --> SIGN Quiana Solares RN, CCDS Certified Clinical Robotic Maintenance Technician W) [phone] (f) [phone] [email or web address]: Make your selection(s) from the choices in EACH section by typing an "x" and enter comments in the comment section. Please use your independent medical judgment in providing your response. This request does not imply that any particular answer is desired or expected. CLINICAL INDICATORS: (Providers should not edit this section) The medical record indicates that the patient was admitted with a change in LOC , "was evaluated by neurology and thought to have experienced a seizure. He is at risk for seizures given his history of old stroke. He has been started on Dilantin 100 mg 3 times daily. He had no other seizure events during the course of the hospitalization". Based on the above, could you clarify the appropriate diagnosis, if significant , that supports the above abnormalities and additional evaluation, monitoring, and/or treatment rendered: (X ) Seizures are late effects of previous stroke ( ) Seizures are not late effects of previous stroke ( ) Seizures due to ( ) Other, please specify: ( ) Clinically unable to determine COMMENTS: PLEASE ALSO DOCUMENT RESPONSE IN PROGRESS NOTES AND/OR DISCHARGE SUMMARY Use of terms such as suspected, likely, or probable (associated with a specific diagnosis that is being evaluated, monitored, or treated as if it exists) are acceptable and can be restated in the discharge summary if not ruled out. MTDD
== END 2017-05-17 14:30 | DRG 58 ==
LOC: EDBD → EDUNIT# → N.ED 18:17 → N.EDINP 18:17 → SUATTDRO 20:38 → N.4E 21:07
PROVIDERS: ADMIT Internal Medicine; ATTEND Family Medicine

== ENCOUNTER 2018-05-10 14:08 | Inpatient (IN) ==
[2018-05-10 15:38] LABS: Basophils % 0.3 % (0.0-0.8); Eosinophils # 0.3 10*3/uL (0.0-0.87); Eosinophils % 3.8 % (0.00-10.9); Hematocrit 41.2 VOL% (42.0-52.0); Hemoglobin 14.3 GM/DL (14.0-18.0); Immature Granulocytes % 0.1 %; Immature Granulocytes Absolute 0.01 #; Lymphocytes % 27.4 % (21.2-54.2); Mean Corpuscular HGB Conc 34.7 GM/DL (32-36); Mean Corpuscular Hemoglobin 32 PG (27-34); Mean Corpuscular Volume 92.6 FL (87-102); Mean Platelet Volume 9.6 FL (9.6-12.0); Monocytes # 0.6 10*3/uL (0.11-0.8); Monocytes % 8.6 % (1.7-12.7); Neutrophils # 4.3 10*3/uL (1.4-7.4); Neutrophils % 59.8 % (38.7-73.9); Platelet Count 149 T/CUMM (130-400); Red Blood Count 4.45 MC/CUMM (3.8-5.5); Red Cell Distribution Width 12.5 % (9.3-17.3); White Blood Count 7.2 T/CUMM (4-12)
[2018-05-10 16:10] LABS: Albumin 3.3 G/DL (3.4-5.0); Bilirubin,Total 0.4 MG/DL (0.2-1.0); Calcium 8.7 MG/DL (8.5-10.1); Osmolality,Calculated 281.1 MOS/KG (273-304); Potassium 3.9 MMOL/L (3.5-5.1)
[2018-05-10 17:01] LABS: Apearance,Urine CLEAR (Clear); Bilirubin,Urine Negative (Negative); Blood, Urine Small mg/dL (Negative); Glucose,Urine (UA) Negative (Negative); Ketones,Urine Negative (Negative); Mucus,Urine Occasional /LPF (Occasional); Nitrite,Urine Negative (Negative); Protein,Urine Negative; RBC,Urine 15 /HPF (0-4); Squamous Epithelial Cell,Urine Occasional /HPF (0-10); Urine Color Yellow (Yellow); Urine Specific Gravity 1.015 (1.001-1.035); WBC,Urine 2 /HPF (0-6)
[2018-05-10 17:28] LABS: Risk Ratio 2.57; Thyroid Stimulating Hormone 1.64 uIU/ml (0.358-3.74); VLDL CHOLESTEROL 22.6 MG/DL
[2018-05-10 18:15] LABS: Barbiturates Screen,Urine Positive (Negative); Benzodiazepines Screen,Urine Negative (Negative); Cannabinoid Screen,Urine Negative (Negative); Opiate Screen,Urine Negative (Negative); Phencyclidine Screen,Urine Negative (Negative)
[2018-05-11 05:09] LABS: Basophils % 0.3 % (0.0-0.8); Eosinophils # 0.3 10*3/uL (0.0-0.87); Hematocrit 40.2 VOL% (42.0-52.0); Hemoglobin 13.6 GM/DL (14.0-18.0); Immature Granulocytes % 0.2 %; Immature Granulocytes Absolute 0.01 #; Lymphocytes # 2.9 10*3/uL (1.4-4.0); Lymphocytes % 48.8 % (21.2-54.2); Mean Corpuscular HGB Conc 33.8 GM/DL (32-36); Mean Corpuscular Hemoglobin 31 PG (27-34); Mean Corpuscular Volume 91.2 FL (87-102); Mean Platelet Volume 11.1 FL (9.6-12.0); Monocytes # 0.5 10*3/uL (0.11-0.8); Monocytes % 7.6 % (1.7-12.7); Neutrophils # 2.3 10*3/uL (1.4-7.4); Neutrophils % 38.1 % (38.7-73.9); Platelet Count 130 T/CUMM (130-400); Red Blood Count 4.41 MC/CUMM (3.8-5.5); Red Cell Distribution Width 12.6 % (9.3-17.3)
[2018-05-11 05:35] LABS: Eosinophils 8 % (0-10); Hypochromasia 1+; Lymphocytes 53 % (20-55); Ovalocytes Slight; Segmented Neutrophils 34 % (50-85); Total Cells Counted 100
[2018-05-11 05:36] LABS: Platelet Estimate Decreased
[2018-05-11 05:38] LABS: Albumin 2.8 G/DL (3.4-5.0); Bilirubin,Total 0.7 MG/DL (0.2-1.0); Calcium 8.4 MG/DL (8.5-10.1); Osmolality,Calculated 282.8 MOS/KG (273-304); Potassium 3.6 MMOL/L (3.5-5.1); Total Protein 6.2 G/DL (6.4-8.3)
[2018-05-12 04:35] LABS: Basophils % 0.3 % (0.0-0.8); Eosinophils # 0.3 10*3/uL (0.0-0.87); Eosinophils % 4.4 % (0.00-10.9); Hematocrit 41.5 VOL% (42.0-52.0); Hemoglobin 14.4 GM/DL (14.0-18.0); Immature Granulocytes % 0.2 %; Immature Granulocytes Absolute 0.01 #; Lymphocytes # 2.8 10*3/uL (1.4-4.0); Lymphocytes % 43.3 % (21.2-54.2); Mean Corpuscular HGB Conc 34.7 GM/DL (32-36); Mean Corpuscular Hemoglobin 32 PG (27-34); Mean Corpuscular Volume 90.8 FL (87-102); Mean Platelet Volume 10.7 FL (9.6-12.0); Monocytes # 0.5 10*3/uL (0.11-0.8); Monocytes % 8.5 % (1.7-12.7); Neutrophils # 2.8 10*3/uL (1.4-7.4); Neutrophils % 43.3 % (38.7-73.9); Platelet Count 154 T/CUMM (130-400); Red Blood Count 4.57 MC/CUMM (3.8-5.5); Red Cell Distribution Width 12.5 % (9.3-17.3); White Blood Count 6.4 T/CUMM (4-12)
[2018-05-12 04:56] LABS: Albumin 3.1 G/DL (3.4-5.0); Bilirubin,Total 0.6 MG/DL (0.2-1.0); Calcium 8.9 MG/DL (8.5-10.1); Osmolality,Calculated 280.1 MOS/KG (273-304); Potassium 3.3 MMOL/L (3.5-5.1)
[2018-05-13 03:51] LABS: Basophils % 0.4 % (0.0-0.8); Eosinophils # 0.3 10*3/uL (0.0-0.87); Eosinophils % 5.4 % (0.00-10.9); Hematocrit 38.8 VOL% (42.0-52.0); Hemoglobin 13.3 GM/DL (14.0-18.0); Immature Granulocytes % 0.2 %; Immature Granulocytes Absolute 0.01 #; Lymphocytes # 2.3 10*3/uL (1.4-4.0); Lymphocytes % 43.3 % (21.2-54.2); Mean Corpuscular HGB Conc 34.3 GM/DL (32-36); Mean Corpuscular Hemoglobin 32 PG (27-34); Mean Corpuscular Volume 92.2 FL (87-102); Mean Platelet Volume 9.8 FL (9.6-12.0); Monocytes # 0.6 10*3/uL (0.11-0.8); Monocytes % 10.8 % (1.7-12.7); Neutrophils # 2.1 10*3/uL (1.4-7.4); Neutrophils % 39.9 % (38.7-73.9); Platelet Count 161 T/CUMM (130-400); Red Blood Count 4.21 MC/CUMM (3.8-5.5); Red Cell Distribution Width 12.6 % (9.3-17.3); White Blood Count 5.4 T/CUMM (4-12)
[2018-05-13 04:33] LABS: Albumin 2.9 G/DL (3.4-5.0); Bilirubin,Total 0.7 MG/DL (0.2-1.0); Calcium 8.5 MG/DL (8.5-10.1); Potassium 3.7 MMOL/L (3.5-5.1); Total Protein 6.5 G/DL (6.4-8.3)
[2018-05-14 05:40] LABS: Basophils % 0.5 % (0.0-0.8); Eosinophils # 0.3 10*3/uL (0.0-0.87); Eosinophils % 4.7 % (0.00-10.9); Hematocrit 37.4 VOL% (42.0-52.0); Immature Granulocytes % 0.9 %; Immature Granulocytes Absolute 0.05 #; Lymphocytes # 2.7 10*3/uL (1.4-4.0); Lymphocytes % 46.6 % (21.2-54.2); Mean Corpuscular HGB Conc 34.8 GM/DL (32-36); Mean Corpuscular Hemoglobin 31 PG (27-34); Mean Corpuscular Volume 89.9 FL (87-102); Monocytes # 0.6 10*3/uL (0.11-0.8); Monocytes % 9.7 % (1.7-12.7); NRBC # 0.04 10*3/uL; Neutrophils # 2.2 10*3/uL (1.4-7.4); Neutrophils % 37.6 % (38.7-73.9); Platelet Count 157 T/CUMM (130-400); Red Blood Count 4.16 MC/CUMM (3.8-5.5); Red Cell Distribution Width 12.9 % (9.3-17.3); White Blood Count 5.8 T/CUMM (4-12)
[2018-05-14 06:12] LABS: Albumin 2.8 G/DL (3.4-5.0); Bilirubin,Total 1.1 MG/DL (0.2-1.0); Calcium 8.9 MG/DL (8.5-10.1); Osmolality,Calculated 276.4 MOS/KG (273-304); Potassium 3.7 MMOL/L (3.5-5.1); Total Protein 6.4 G/DL (6.4-8.3)
[2018-05-14 06:23] LABS: Atypical Lymphocytes Few; Eosinophils 1 % (0-10); Hypochromasia Slight; Lymphocytes 47 % (20-55); Microcytosis Slight; Ovalocytes Slight; Segmented Neutrophils 42 % (50-85); Total Cells Counted 100
[2018-05-14 06:24] LABS: Platelet Estimate Adequate
[2018-05-15 05:58] LABS: Basophils % 0.4 % (0.0-0.8); Eosinophils # 0.2 10*3/uL (0.0-0.87); Eosinophils % 4.4 % (0.00-10.9); Hematocrit 37.8 VOL% (42.0-52.0); Hemoglobin 13.4 GM/DL (14.0-18.0); Immature Granulocytes % 0.2 %; Immature Granulocytes Absolute 0.01 #; Lymphocytes # 2.7 10*3/uL (1.4-4.0); Lymphocytes % 48.9 % (21.2-54.2); Mean Corpuscular HGB Conc 35.4 GM/DL (32-36); Mean Corpuscular Hemoglobin 32 PG (27-34); Mean Corpuscular Volume 89.2 FL (87-102); Mean Platelet Volume 9.7 FL (9.6-12.0); Monocytes # 0.5 10*3/uL (0.11-0.8); Neutrophils % 37.1 % (38.7-73.9); Platelet Count 155 T/CUMM (130-400); Red Blood Count 4.24 MC/CUMM (3.8-5.5); Red Cell Distribution Width 12.6 % (9.3-17.3); White Blood Count 5.4 T/CUMM (4-12)
[2018-05-15 06:23] LABS: Atypical Lymphocytes Few; Eosinophils 5 % (0-10); Lymphocytes 53 % (20-55); Microcytosis Slight; Segmented Neutrophils 38 % (50-85); Total Cells Counted 100
[2018-05-15 06:24] LABS: Platelet Estimate Adequate
[2018-05-15 06:59] LABS: Bilirubin,Total 0.6 MG/DL (0.2-1.0); Calcium 8.6 MG/DL (8.5-10.1); Potassium 3.7 MMOL/L (3.5-5.1); Total Protein 6.7 G/DL (6.4-8.3)
[2018-05-15 16:26] VITALS: BP 163/95
== END 2018-05-15 19:15 | DRG 58 ==
LOC: EDBD → EDUNIT# → N.ED 14:08 → N.CC 16:50 → SUATTDRO 16:50 → N.CC 19:28 → N.3E 05-13 08:26
PROVIDERS: ADMIT Internal Medicine; ATTEND Internal Medicine